=== PATIENT | male | born 1965 | race Caucasian/White ===

== ENCOUNTER 2021-02-16 19:47 | Emergency (ER) | payer OTHER ==
--- NOTE | 2021-02-16 20:09 | EDM.PDOC ---
ED HPI GENERAL MEDICAL PROBLEM - General Stated Complaint: SHOULDER INJURY Time Seen by Provider: 02/16/21 19:54 Source of Information: Reports: Patient History Limitations: Reports: No Limitations - History of Present Illness INITIAL COMMENTS - FREE TEXT/NARRATIVE: 55-year-old male presents with acute onset left shoulder pain. He was working to unhook a semitrailer. He grabbed the handle and gave it a big dog and felt acute onset tearing pain to his left shoulder. He admits to numbness and tingling to his left shoulder. He denies falling on his shoulder. Denies fever, chest pain, shortness of breath. ROS: A 10-point review of systems, other than pertinent positives and negatives as stated per HPI, is otherwise negative Past medical history: No additional pertinent history Past Surgical history: No additional pertinent history Social history: No additional pertinent history Family history: No additional pertinent history PHYSICAL EXAM General: AOx4, GCS = 15, No distress HEENT: dry mucous membrane Neck: supple, no meningismus, no Kernig or Brudzinski Cardiac: S1S2 RRR Respiratory: CTAB, no crackles or rales, no wheezing Abdomen: Soft, nontender, no rebound or guarding, nondistended, no pulsatile mass. Back: nontender Musculoskeletal: NVI distally, left shoulder rotator cuff tender to palpation, positive liftoff test and beer can sign. No deformity. nVI distally. Neuro: No focal deficits, CN 2 - 12 WNL. - Related Data Home Meds: Home Meds Ibuprofen 400 mg PO Q6H PRN #20 tablet 02/16/21 [Rx] ED ROS GENERAL - Review of Systems Review Of Systems: See Below (see dictation) ED EXAM, GENERAL - Physical Exam Exam: See Below (see dictation) ED GENERAL MEDICAL PROCEDURES - Splinting Left Upper Extremity Splint Site: Left shoulder Pre-procedure NV status: Normal Post-procedure NV status: Normal Splint Design: Other (Shoulder immobilizer) Applied & Form Fitted By: Nurse Provider Post-Splint Application NV Check: NV Status Normal, Good Position Complications: No Progress/Comments: Splint: Left shoulder immobilizer Indication: Rotator cuff injury How will this benefit patient: immobilization Duration: 7 days Course - Orders/Labs/Meds Orders: Active Orders 24 hr Category Date Time Status DME for Discharge [COMM] Stat Oth 02/16/21 20:04 Ordered - Re-Assessments/Exams Free Text/Narrative Re-Assessment/Exam: 02/16/21 20:06 After placement of the shoulder immobilizer in the ER, the patient improved and is currently stable for discharge. I performed a repeat exam and did not appreciate new abnormal findings. Patient exhibits normal vital signs and has a normal gait on road test. I advised the patient to return to the ER for reevaluation if symptoms worsened, including fever, worsening pain, or any other worrisome symptoms. I instructed the patient to follow up with physical therapy and orthopedics within 2-3 days. MEDICAL DECISION MAKING: I reviewed the patients past medical records, lab and radiographic findings. I discussed the case with the patient. My differential diagnosis included: Rotator cuff injury, muscle strain or tear. There was no falls or trauma, doubt dislocation or bony abnormality. His clinical exam is consistent with rotator cuff injury. The affected extremity demonstrated good distal perfusion, warm, pink, cap refill <2 seconds, compartments soft, pulses equal in both extremities. Patient understands to return immediately for worsening pain, swelling, fever, numbness/tingling or other concerns and to f/u with physical therapy and orthopedics if no improvement of symptoms within 3-5 days. Departure - Departure Time of Disposition: 20:07 Disposition: Home, Self-Care 01 Condition: Good Clinical Impression: Injury of left rotator cuff - Discharge Information *PRESCRIPTION DRUG MONITORING PROGRAM REVIEWED*: Not Applicable *COPY OF PRESCRIPTION DRUG MONITORING REPORT IN PATIENT BRII: Not Applicable Prescriptions: Ibuprofen 400 mg PO Q6H PRN #20 tablet PRN Reason: Pain (Moderate 4-6) Instructions: Rotator Cuff Tear Referrals: PCP,None [Primary Care Provider] - Additional Instructions: The need for follow-up, as well as the timing and circumstances, are variable depending upon the specifics of your emergency department visit. If you don't have a primary care physician on staff, we will provide you with a referral. We always advise you to contact your personal physician following an emergency department visit to inform them of the circumstance of the visit and for follow-up with them and/or the need for any referrals to a consulting specialist. The emergency department will also refer you to a specialist when appropriate. This referral assures that you have the opportunity for follow-up care with a specialist. All of these measure are taken in an effort to provide you with optimal care, which includes your follow-up. Under all circumstances we always encourage you to contact your private physician who remains a resource for coordinating your care. When calling for follow-up care, please make the office aware that this follow-up is from your recent emergency room visit. If for any reason you are refused follow-up, please contact the [facility] Emergency Department at and asked to speak to the emergency department charge nurse. If you do not have a primary care doctor, please follow up with the clinics below within 3-5 days. [facility] - Primary Care [address] [place] [address] [id number] - My Orders Last 24 Hours: My Active Orders 02/16/21 20:04 DME for Discharge [COMM] Stat - Assessment/Plan Last 24 Hours: My Active Orders 02/16/21 20:04 DME for Discharge [COMM] Stat
== END 2021-02-16 20:32 | disposition home or self-care (01) ==
LOC: MW.ED 19:47
DX: S46.002A Unspecified injury of muscle(s) and tendon(s) of the rotator cuff of left shoulder, initial encounter (principal); X58.XXXA Exposure to other specified factors, initial encounter; X50.9XXA Other and unspecified overexertion or strenuous movements or postures, initial encounter
CPT/HCPCS: 99283